=== PATIENT | female | born 1955 | race Caucasian/White ===

== ENCOUNTER 2018-08-30 06:49 | Observation (INO) | payer MEDICARE ==
[2018-09-04] MEDS ORDERED: Buffered Lidocaine 1% SYRIN* 1 ML/SYRINGE INTRADERM ONE (12:47)
[2018-09-05] MEDS ORDERED: Famotidine IV* 10 MG/ML 2 ML (20 mg) IV ONE (06:00)
[2018-09-05] MEDS ORDERED: Lactated Ringers 1000 ML Bag* 1,000 ML IV SCH (06:00)
[2018-09-05] MEDS ORDERED: Dexamethasone IV* 4 MG/ML 1 ML (4 MG) IV SLOW PU ONE (06:00)
[2018-09-05] MEDS ORDERED: Dexamethasone IV* 4 MG/ML 1 ML (4 MG) ONE ×3 (06:13→11:39)
[2018-09-05] MEDS ORDERED: Famotidine IV* 10 MG/ML 2 ML (20 mg) ONE (06:13)
[2018-09-05] MEDS ORDERED: ceFAZolin 2 GM PREMIX in ORs 2 GM/50 ML BAG IVPB ONE ×2 (06:13→12:18)
[2018-09-05] MEDS ORDERED: Thrombin 5,000 UNITS* 1 APPLIC KIT - topical use - TOPICAL ONE (06:54)
[2018-09-05] MEDS ORDERED: Bacitracin INJECTION* 50,000 UNITS ONE (06:54)
[2018-09-05] MEDS ORDERED: Lidocaine 1% MPF wEPI 200,000* 30 ML SDV ONE (06:54)
[2018-09-05] MEDS ORDERED: Midazolam* 1 MG/ML 2 ML VIAL (2 MG) ONE (07:13)
[2018-09-05] MEDS ORDERED: fentaNYL* 50 MCG/ML 2 ML VIAL (100 MCG VIAL) ONE ×2 (07:13→13:11)
[2018-09-05] MEDS ORDERED: Remifentanil* 2 MG VIAL ONE ×2 (07:14→11:29)
[2018-09-05] MEDS ORDERED: Propofol* 10 MG/ML 20 ML BTL ONE (07:14)
[2018-09-05] MEDS ORDERED: Lidocaine 2% PF * 5 ML VIAL ONE (07:14)
[2018-09-05] MEDS ORDERED: Rocuronium* 10 MG/ML VIAL ONE (07:14)
[2018-09-05] MEDS ORDERED: Naloxone* 0.4 MG/ML 1 ML VIAL IV PRN (07:38)
[2018-09-05] MEDS ORDERED: oxyCODONE/Acetamin 5/325 MG* TAB PO PRN ×2 (07:38→14:19)
[2018-09-05] MEDS ORDERED: fentaNYL* 50 MCG/ML 2 ML VIAL (100 MCG VIAL) IV PRN (07:38)
[2018-09-05] MEDS ORDERED: DiMENhydriNATE IV* 50 MG/ML VIAL IV PUSH PRN (07:38)
[2018-09-05] MEDS ORDERED: HYDROcodone/ACETAMIN 5-325 MG* 1 TAB PO PRN (07:38)
[2018-09-05] MEDS ORDERED: EPHEDrine (Pressors)* 50 MG/ML VIAL ONE (08:04)
[2018-09-05] MEDS ORDERED: Phenylephrine 40 MCG/ML SYRINGE ONE (08:16)
[2018-09-05] MEDS ORDERED: Glycopyrrolate IV* 0.2 MG/ML 1 ML VIAL ONE (08:39)
[2018-09-05] MEDS ORDERED: Phenylephrine 10 MG/ML VIAL* 1 ML VIAL ONE (09:39)
[2018-09-05] MEDS ORDERED: Ondansetron INJ* 2 MG/ML VIAL ONE (12:33)
[2018-09-05] MEDS ORDERED: Metoprolol Tartrate IV* 1 MG/ML 5 ML VIAL ONE (13:03)
[2018-09-05] MEDS ORDERED: Acetaminophen TAB* 325 MG PO PRN (13:43)
[2018-09-05] MEDS ORDERED: Ondansetron INJ* 2 MG/ML VIAL IV PRN (13:43)
[2018-09-05] MEDS ORDERED: Morphine INJ* 2 MG/ML 1 ML SYRINGE (TWO MG - NEW SYRINGE VERSION) IV PRN (14:16)
[2018-09-05] MEDS: Lactated Ringers 1000 ML Bag* 1,000 ML IV SCH (15:48)
--- NOTE | 2018-09-05 18:38 | OP ---
DATE OF OPERATION: 09/05/18 - ROOM #333 DATE OF : 51 SURGEON: Elisa Goodson MD. STUDENT SERVICES REPRESENTATIVE: HEBER Ward. The case was done with the assistance of surgical PA because of the complexity of the case. ANESTHESIA: General. PRE-OP DIAGNOSES: 1. Degenerative disk disease. 2. Severe cervical myelopathy with cervical spondylosis. POST-OP DIAGNOSES: 1. Degenerative disk disease. 2. Severe cervical myelopathy with cervical spondylosis. OPERATIVE PROCEDURE: The patient underwent anterior cervical corpectomy C5-C6 for anterior cervical decompression and arthrodesis C4 to C7 with PEEK corpectomy cage, DBX autologous local bone graft, and plate and screws with intraoperative monitoring. ESTIMATED BLOOD LOSS: 100 cc. COMPLICATIONS: None. SUMMARY: The patient is a very pleasant 63-year-old female with difficulties with ambulation and balance. She was diagnosed with severe cervical spondylotic myelopathy. 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 The patient was offered the option of surgical intervention in the form of anterior cervical corpectomy and fusion at C5 and C6 with PEEK corpectomy cage. After all expectations, limitations, and possible complications of the procedure have been explained in detail with the patient and her sister with complications including, but not limited to bleeding , infection, risk of injury to adjacent structures, coma, paralysis, , need for additional procedures, anesthesia risks, stroke, blindness, cancer, instability, hardware failure, adjacent level disease, pseudoarthrosis, spinal fluid leak, recurrent laryngeal nerve injury, injury to esophagus or the trachea , need for tracheostomy or gastrostomy, need for prolonged ICU stay, prolonged hospitalization or prolonged rehabilitation, paralysis, worsening of his symptoms, anesthesia risks, the patient was agreeable to proceed with surgery and informed consent was obtained. The patient understood that her condition may not improve and in fact may get worse after surgery and that she may need to have additional procedure in the future. She also understood that the goal of the surgery was to avoid further damage to spinal cord and progression of her myelopathy. She understood that her clinical condition may not improve. She also understood the operative plan may be modified according to the intraoperative findings and conditions and that the case may be aborted or done in more than 1 stages. She understood that she may need to stay in the ICU postoperatively and that she may need to have posterior arthrodesis to supplement the anterior fusion. DESCRIPTION OF PROCEDURE: The patient was brought to the operating room and was placed under general anesthesia by the anesthesia team. She was carefully positioned supine on the flat top Carlos Enrique table and all bony prominences were meticulously padded. Her skin was prepped and draped in the standard fashion. After appropriate surgical pause and patient identification, a right transverse incision over the C5-6 disk space was marked in the skin and anesthetized with local anesthetic. The appropriate level was obtained with the use of intraoperative fluoroscopic imaging. A #10 surgical blade was used to incise the skin. The skin was undermined with tenotomy scissors and the platysma was gently elevated and divided with tenotomy scissors. The platysma was then meticulously undermined and the plane between the medial border of the sternocleidomastoid and the medial structures was gently developed with sharp and blunt dissection. The prevertebral fascia was identified and it was gently divided, and after the exposure of the anterior part of the spine, intraoperative fluoroscopic imaging was used to confirm the appropriate surgical level. Self-retaining retractor was introduced into the field and 2 Cleveland pins at the C4 and C7 vertebral bodies were inserted and a Cleveland distractor was then attached to them. Diskectomies were performed at C4-5, C5- 6 and C6-7 level, dividing the anterior longitudinal ligament and annulus fibrosus with a #15 surgical blade. Locally harvested bone graft from the anterior osteophytes were saved for their use later in the arthrodesis phase of the procedure. The diskectomy was performed with high-speed drill, Kerrison punches, and curettes. Then, attention was brought to perform a corpectomy at C5 and C6 with use of Leksell rongeurs and high-speed drill. Kerrison punches were used to elevated the remaining of other posterior aspect of the dural bodies. As expected from the preoperative imaging, severe calcification in the posterior part of C5-6 disk space, as well as severe compression of the spinal cord was identified. The thecal sac was gently decompressed with the use of Kerrison punches. After the completion of the corpectomy and the removal of the posterior longitudinal ligament, the thecal sac was found to be free of any pressure phenomenon and the spinal cord was preserved nicely. After meticulous hemostasis was confirmed with copious irrigation and meticulous inspection, a stackable corpectomy cage was Medtronic was filled with locally harvested bone graft and DBX and was inserted. Excellent placement of the corpectomy cage was confirmed with fluoroscopic imaging. Then, after removal of the Cleveland pins, a 55 Zevo Medtronic plate was slightly bent and was secured in place with titanium 3.5 x 15 mm screws. Fluoroscopic imaging confirmed excellent placement of all hardware and good alignment of the cervical spine. During the exposure, the Apfelbaum maneuver was performed. Then, the self-retaining retractors were removed from the wound. The screws were then finally tightened and the locking mechanism was engaged. After copious irrigation and confirmation of meticulous hemostasis and meticulous inspection, the wound was closed by layers over a Jone drain, which was placed through a separate stab wound incision. 2-0 interrupted Vicryl sutures were used to approximate the platysma while inverted 2-0 interrupted Vicryl sutures were used to approximate the subcutaneous tissue. The skin was covered with Dermabond. At the end of the procedure, all counts were reported to be correct. The patient remained hemodynamically stable and intraoperative electrophysiological monitoring was stable throughout the case. The patient was then extubated and was transferred to Recovery in excellent condition with a [facility] collar. The case was done with the assistance of surgical PA because of the complexity of the case. [id number] #: [id number] JEANETTE
[2018-09-06] MEDS: Lactated Ringers 1000 ML Bag* 1,000 ML IV SCH (04:53)
--- NOTE | 2018-09-06 07:59 | PN ---
Progress Note - Progress Note Date of Service: 09/06/18 SOAP: Subjective: 63 y/o female s/p ACDF of C5/C6 POD # 1, patient is doing well. At this time patient denies having pain, she has been able tolerate liquids and some food by mouth, also denies difficulty with speaking. She has been ambulating to the rest room with some assistance and feels that her legs a more steady after surgery. Her vitals have been stable over night and AHSAN drain put out 40 ml. Patient is stable and has no complaints at this time. Objective: Vital Signs - 8 hr 09/06/18 09/06/18 09/06/18 02:06 03:59 07:45 Temperature 98.6 F 98.3 F Pulse Rate 58 Respiratory 16 18 Rate Blood Pressure 103/53 98/50 (mmHg) O2 Sat by Pulse 94 94 95 Oximetry General: patient laying bed HOB elevated, comfortable NAD Neuro: GCS 15, A&O x 3 CN II - XII grossly intact, sensation intact with light touch, positive Ellis's left hand, Negative Clonus, Motor in UPE and LE 5/5 bilateral Derm: Surgical wound intact C/D/I, drain in place Assessment: 63 y/o female s/p ACDF at C5/C6 recovering well tolerating liquids and some food by mouth. She is able to ambulate to restroom with assistance and is not having issues with voiding. Patient is potentially ready for discharge. Plan: 1) Pain control as needed 2) Ambulate with PT/OT 3) Follow up post op X rays. 4) Encourage intake PO 5) Discharge planning.
--- NOTE | 2018-09-06 08:15 | DS ---
Date of service 09/05/18 Date of discharge: 09/06/18 Disposition at discharge: Good Discharged: Home Diagnosis on Admission: Cervical spondylosis with myelopathy Diagnosis on discharge: Cervical spondylosis with myelopathy Hospital discourse: 63 y/o female presented increasing gait disturbances that required usage of walker for ambulation. On examination patient gate was spastic and lower extremity reflexes were hyper reflexive. Her on imaging demonstrated severe stenosis at C5/C6. There was concern if patient were to fall or sustain an injury there was a possibility she would become paralyzed and was offered surgery. She underwent a ACDF at C5/C6 on 09/05/[address] Goodson, patient tolerated procedure well. She place in short stay unit for observation, over night she remained stable, was able to tolerate intake by mouth. Also she was able to ambulate with assistance and void without issues. Patient was discharged home with instructions, medications for pain control and follow up appointment in [facility].
[2018-09-06 15:31] VITALS: BP 95/56
== END 2018-09-06 16:25 | disposition home or self-care (01) ==
LOC: AA 09-05 05:44 → INTOOBSV 09-05 05:44 → SSU 09-05 15:47
PROVIDERS: ADMIT Neurological Surgery; ATTEND Neurological Surgery
DX: M47.12 Other spondylosis with myelopathy, cervical region (principal); M50.30 Other cervical disc degeneration, unspecified cervical region; Z87.891 Personal history of nicotine dependence
CPT/HCPCS: 36415; 72040; 76000; 86850; 86900; 86901; 96374; 96375; A9270-GY; G0378; G8978-GP-CI; G8979-GP-CI; G8980-GP-CI; J0690; J1100; J2001; J2250; J2405; J2704; J3010; J3490

== ENCOUNTER 2022-02-28 06:01 | Observation (INO) ==
[~2022-02-28 06:01] MED LIST: Buffered Lidocaine 1% SYRIN 1 ml INTRADERM ONE; Famotidine IV 10 MG/ML 2 ml VIAL (20 mg) IV ONE; Lactated Ringers 1000 ml BAG 1,000 ML IV SCH
[2022-02-28] MEDS ORDERED: ceFAZolin 2 GM PREMIX 2 GM/50 ML BAG ONE (06:40)
[2022-02-28] MEDS ORDERED: Tranexamic Acid 1 GM/100ML BAG 2,000 MG/200 ML BAG IV ONE (06:40)
[2022-02-28] MEDS ORDERED: Lidocaine 2% PF 5 ML VIAL ONE ×2 (06:48→07:26)
[2022-02-28] MEDS ORDERED: Propofol 10 MG/ML 20 ML BTL ONE (06:48)
[2022-02-28] MEDS ORDERED: Famotidine IV 10 MG/ML 2 ml VIAL (20 mg) ONE (06:54)
[2022-02-28] MEDS ORDERED: Midazolam 2 mg/2 ml VIAL 1 mg/ml 2 ml VIAL (2 mg) ONE ×2 (06:58→07:25)
[2022-02-28] MEDS ORDERED: fentaNYL 100 mcg/2 ml 50 MCG/ML VIAL ONE (06:58)
[2022-02-28] MEDS ORDERED: Rocuronium 50 mg VIAL 10 mg/ml 5 ml VIAL (50 mg) ONE (07:07)
[2022-02-28] MEDS ORDERED: ROPIVACAINE 5 MG/ML 30 ML BTL (0.5%) ONE (07:20)
[2022-02-28] MEDS ORDERED: Dexmedetomidine 200 mcg/2 ml 2 ml VIAL (200 mcg) ONE ×2 (07:25→07:28)
[2022-02-28] MEDS ORDERED: Dexamethasone IV 4 MG/ML VIAL 1 ml VIAL ONE (07:25)
[2022-02-28] MEDS ORDERED: Bupivacaine 0.25% w/EPI 10 ML SDV ONE (07:41)
[2022-02-28] MEDS ORDERED: Bupivacaine 0.25% SDV 30 ML ONE ×2 (07:57→08:03)
[2022-02-28] MEDS ORDERED: BUPIVACAINE **LIPOSOME/PF 13.3 MG/ML (266MG/ 20ML) VIAL (RESTRICTED) INFIL ONE (08:00)
[2022-02-28] MEDS ORDERED: Prochlorperazine 5 mg/ml 2 ml VIAL (10 mg) IV PRN (10:06)
[2022-02-28] MEDS ORDERED: Ondansetron 4 mg VIAL 2 MG/ML 2 ml VIAL IV PRN ×2 (10:06→10:09)
[2022-02-28] MEDS ORDERED: HYDROcodone/ACETAMIN 5/325 mg TAB PO PRN (10:06)
[2022-02-28] MEDS ORDERED: fentaNYL 100 mcg/2 ml 50 MCG/ML VIAL IV PRN (10:06)
[2022-02-28] MEDS ORDERED: Magnesium Hydroxide LIQ 30 ML UDC PO PRN (10:09)
[2022-02-28] MEDS ORDERED: Lactulose 30 ml UDC PO PRN (10:09)
[2022-02-28] MEDS ORDERED: Morphine 2 MG/ML SYRINGE IV PRN (10:09)
[2022-02-28] MEDS ORDERED: Ondansetron ODT 4 mg TAB 4 MG TAB PO PRN (10:09)
[2022-02-28] MEDS: Lactated Ringers 1000 ml BAG 1,000 ML IV SCH ×2 (13:20→22:57)
[2022-02-28] MEDS: ceFAZolin 1 GM ADVAN 1 GM in NS 0.9% 50 ML 50 ML IVPB SCH (14:52)
[2022-02-28] MEDS: Magnesium Hydroxide LIQ 30 ML UDC PO SCH (21:30)
[2022-03-01] MEDS: ceFAZolin 1 GM ADVAN 1 GM in NS 0.9% 50 ML 50 ML IVPB SCH ×2 (00:21→07:27)
[2022-03-01 06:57] LABS: Hematocrit 34 % (35-47); Hemoglobin 11.4 g/dL (12.0-16.0); Mean Platelet Volume 8.3 fL (7.4-10.4); Platelet Count 212 10^3/uL (150-450)
[2022-03-01 07:11] LABS: Calcium 8.5 mg/dL (8.6-10.3); eGFR CKD-EPI 76.3 (>60)
[2022-03-01] MEDS: Magnesium Hydroxide LIQ 30 ML UDC PO SCH (07:27)
[2022-03-01 08:14] VITALS: BP 101/59
[2022-03-01] MEDS ORDERED: Vitamin THERAPEUTIC TAB PO SCH (09:00)
== END 2022-03-01 12:45 | disposition home or self-care (01) ==
LOC: SSU 06:01 → OR 06:01
PROVIDERS: ADMIT Orthopaedic Surgery Sports Medicine; ATTEND Orthopaedic Surgery Sports Medicine